=== PATIENT | female | born 1980 | race Caucasian/White ===

== ENCOUNTER 2022-01-03 22:16 | Emergency (ER) | payer BC ==
[2022-01-03] MEDS ORDERED: Triple Antibiotic Oint 1 GM Packet ONE (22:50)
== END 2022-01-03 23:17 | disposition home or self-care (01) ==
LOC: ERS 22:16
DX: S91.114A Laceration without foreign body of right lesser toe(s) without damage to nail, initial encounter (principal); I10 Essential (primary) hypertension; E78.5 Hyperlipidemia, unspecified; F17.210 Nicotine dependence, cigarettes, uncomplicated; W26.8XXA Contact with other sharp object(s), not elsewhere classified, initial encounter
CPT/HCPCS: 99283

== ENCOUNTER 2022-04-08 17:30 | Outpatient (CLI) | payer BC | END 2022-04-08 17:31 | disposition home or self-care (01) | LOC: SLEEPLAB 17:30 | PROVIDERS: ATTEND Family Medicine | DX: G47.33 Obstructive sleep apnea (adult) (pediatric) (principal); E66.9 Obesity, unspecified; R53.83 Other fatigue | CPT/HCPCS: 95800 ==

== ENCOUNTER 2022-06-05 11:26 | Outpatient (CLI) | payer BC | END 2022-06-05 11:27 | disposition home or self-care (01) | LOC: SCSRAD 11:26 | PROVIDERS: ATTEND Family Medicine | DX: M51.16 Intervertebral disc disorders with radiculopathy, lumbar region (principal); M47.26 Other spondylosis with radiculopathy, lumbar region | CPT/HCPCS: 72100 ==

== ENCOUNTER 2022-06-13 14:11 | Outpatient (CLI) | payer BC | END 2022-06-13 14:12 | disposition home or self-care (01) | LOC: MRI 14:11 | PROVIDERS: ATTEND Family Medicine | DX: M51.16 Intervertebral disc disorders with radiculopathy, lumbar region (principal) | CPT/HCPCS: 72148 ==

== ENCOUNTER 2023-01-14 12:09 | Outpatient (CLI) | payer BC | END 2023-01-14 12:10 | disposition home or self-care (01) | LOC: ULT 12:09 | PROVIDERS: ATTEND Student in an Organized Health Care Education/Training Program | DX: N93.9 Abnormal uterine and vaginal bleeding, unspecified (principal); N83.201 Unspecified ovarian cyst, right side | CPT/HCPCS: 76856 ==

== ENCOUNTER 2024-01-21 15:09 | Outpatient (CLI) | payer BC | END 2024-01-21 15:10 | disposition home or self-care (01) | LOC: BICRAD 15:09 | PROVIDERS: ATTEND Family Medicine | DX: M79.671 Pain in right foot (principal) ==